=== PATIENT | male | born 1980 | race Caucasian/White ===

== ENCOUNTER 2024-04-12 08:33 | Emergency (ER) | payer OTHER ==
[2024-04-12] MEDS ORDERED: Ondansetron ODT 4 MG TAB ONE (09:03)
[2024-04-12] MEDS ORDERED: Dicyclomine 20 MG/2 ML VIAL ONE (10:01)
[2024-04-12] MEDS ORDERED: Dicyclomine 20 MG TAB ONE (10:05)
== END 2024-04-12 10:02 | disposition home or self-care (01) ==
LOC: CSHERS 08:33
DX: R11.2 Nausea with vomiting, unspecified (principal); R05.9 Cough, unspecified; E11.9 Type 2 diabetes mellitus without complications; I10 Essential (primary) hypertension; F17.210 Nicotine dependence, cigarettes, uncomplicated
CPT/HCPCS: 71046; 87428; Q0162